=== PATIENT | female | born 1995 ===

== ENCOUNTER → 2017-04-07 | Outpatient (REF) | LOC: WSOH 10:59 | DX: Z02.1 Encounter for pre-employment examination (principal) ==

== ENCOUNTER → 2017-04-10 | Outpatient (REF) | LOC: WSOH 09:00 | DX: Z02.89 Encounter for other administrative examinations (principal) ==

== ENCOUNTER → 2017-04-22 | Outpatient (REF) | LOC: WSOH 08:44 | DX: Z11.1 Encounter for screening for respiratory tuberculosis (principal) ==